=== PATIENT | female | born 1990 | race Caucasian/White ===

== ENCOUNTER 2019-02-01 17:37 | Emergency (ER) | payer OTHER ==
[2019-02-01 17:46] VITALS: TEMP 98.3
[2019-02-01 18:37] LABS: Basophils % (A) 0 %; Eosinophils # (A) 0.1 k/uL (0-0.7); Eosinophils % (A) 1 %; HGB 14.9 gm/dL (11.4-16.0); Lymphocytes # (A) 2.6 k/uL (1.0-4.8); Lymphocytes % (A) 29 %; MCH 31.1 pg (25.0-35.0); MCV 91.6 fL (80.0-100.0); Mean Platelet Volume 7.3; Monocytes # (A) 0.4 k/uL (0-1.0); Monocytes % (A) 4 %; Neutrophils # (A) 5.8 k/uL (1.3-7.7); Neutrophils % (A) 64 %; Platelet Count 255 k/uL (150-450); RDW 12.6 % (11.5-15.5); WBC 9.1 k/uL (3.8-10.6)
[2019-02-01 18:38] VITALS: RESP 16
[2019-02-01 18:44] LABS: ALT 24 U/L (4-34); AST 21 U/L (14-36); African American GFR (CKD) >90 (>60 ml/min/1.73 sqM); Albumin 4.6 g/dL (3.5-5.0); Alkaline Phosphatase 64 U/L (38-126); Anion Gap 10 mmol/L; Blood Urea Nitrogen 13 mg/dL (7-17); Calcium 9.9 mg/dL (8.4-10.2); Carbon Dioxide 24 mmol/L (22-30); Chloride 107 mmol/L (98-107); Glucose 108 mg/dL (74-99); Non-African American GFR(CKD) >90 (>60 ml/min/1.73 sqM); Potassium 4.2 mmol/L (3.5-5.1); Sodium 141 mmol/L (137-145); Total Bilirubin 0.6 mg/dL (0.2-1.3); Total Protein 7.1 g/dL (6.3-8.2)
[2019-02-01 19:00] LABS: HCG,Quantitative Serum 8624.3 mIU/mL
--- NOTE | 2019-02-01 20:06 | US ---
EXAMINATION TYPE: Transabdominal DATE OF EXAM: 02/01/2019 7:52 PM COMPARISON: NONE CLINICAL HISTORY: pain, vaginal bleeding. EXAM PERFORMED: Transabdominal (TA) EXAM MEASUREMENTS: GESTATIONAL AGE / DATING Physician Established: Not yet established Dates by LMP: 12/12/2018 (7 weeks/2 days) EDC: 09/18/2019 Dates by First Scan: No previous this is first scan Dates by Current Scan for: Unable to date by today's study MATERNAL ANATOMY Uterus: 9.1 x 5.5 x 6.3cm Right Ovary: 2.6 x 1.8 x 1.9 cm Left Ovary: 2.5 x 1.8 x 2.3 cm Post CDS / Adnexa: wnl Presence of free fluid: none GESTATION / SURVEY MSD: 0.9 cm measures out of range, too small to date Date of LMP: 12/12/2018 Beta HcG (if available): 8624 Tiny sac in uterus could represent early IUP too early to date. Recommend serial beta HcG. Does not c orrelate with patient's LMP. IMPRESSION: Tiny intrauterine gestational sac. Follow-up exam recommended in 14 days to confirm a living fetus. N o adnexal mass.
[2019-02-01 20:22] LABS: Appearance,Urine Clear (Clear); Bacteria,Urine Rare /hpf; Bilirubin,Urine Negative (Negative); Blood,Urine Large (Negative); Color,Urine Yellow; Glucose,Urine (UA) Negative (Negative); Ketones,Urine Negative (Negative); Leukocyte Esterase,Urine Small (Negative); Mucus,Urine Rare /hpf; Nitrite,Urine Negative (Negative); Protein,Urine Trace (Negative); RBC,Urine 128 /hpf (0-5); Squamous Epithelial Cell,Urine 4 /hpf (0-4); Urobilinogen,Urine <2.0 mg/dL (<2.0); WBC,Urine 10 /hpf (0-5)
--- NOTE | 2019-02-01 21:07 | ED ---
Female Urogenital HPI - General Chief complaint: Vaginal Bleeding Stated complaint: 8wks preg, bleeding Time Seen by Provider: 02/01/19 17:45 Source: patient Mode of arrival: ambulatory Limitations: no limitations - History of Present Illness Initial comments: The patient is a 28-year-old female with no past medical history who presents to the emergency room with reported vaginal bleeding. The patient is and currently approximately 8 weeks . She states that her last menstrual cycle was December 12. She took a home test which was positive. Has yet to establish care for this . States she recently moved to the area . On January 30 she began having mild vaginal bleeding. States that it is not enough to saturate a pad. She only sees it when she wipes. He is bright red in color. Admits to associated vaginal cramping. Denies any abdominal trauma. No vaginal discharge. Denies dysuria, hematuria of difficulty voiding. Denies diarrhea, constipation, melanotic stools or hematochezia. Denies syncope or pre syncope. No fevers or chills. Denies any nausea or vomiting. There are no other alleviating, precipitating or modifying factors - Related Data Allergies Allergy/AdvReac Type Severity Reaction Status Date / Time No Known Allergies Allergy Verified 02/01/19 17:42 Review of Systems ROS Statement: Those systems with pertinent positive or pertinent negative responses have been documented in the HPI. ROS Other: All systems not noted in ROS Statement are negative. Past Medical History Additional Past Medical History / Comment(s): bulging disc History of Any Multi-Drug Resistant Organisms: None Reported Past Surgical History: Appendectomy, Tonsillectomy Past Psychological History: No Psychological Hx Reported Smoking Status: Never smoker Past Alcohol Use History: None Reported Past Drug Use History: None Reported General Exam Limitations: no limitations General appearance: alert, in no apparent distress Head exam: Present: atraumatic, normocephalic, normal inspection Eye exam: Present: normal appearance, PERRL, EOMI. Absent: scleral icterus, conjunctival injection, periorbital swelling ENT exam: Present: normal exam, mucous membranes moist Neck exam: Present: normal inspection. Absent: tenderness, meningismus, lymphadenopathy Respiratory exam: Present: normal lung sounds bilaterally. Absent: respiratory distress, wheezes, rales, rhonchi, stridor Cardiovascular Exam: Present: regular rate, normal rhythm, normal heart sounds. Absent: systolic murmur, diastolic murmur, rubs, gallop, clicks GI/Abdominal exam: Present: soft, normal bowel sounds. Absent: distended, tenderness, guarding, rebound, rigid Speculum exam: Absent: vaginal discharge Extremities exam: Present: normal inspection, full ROM, normal capillary refill. Absent: tenderness, pedal edema, joint swelling, calf tenderness Back exam: Present: normal inspection Neurological exam: Present: alert, oriented X3, CN II-XII intact Psychiatric exam: Present: normal affect, normal mood Skin exam: Present: warm, dry, intact, normal color. Absent: rash Course Vital Signs 02/01/19 02/01/19 02/01/19 17:43 18:33 21:27 Temperature 98.3 F Pulse Rate 81 70 Respiratory 18 16 16 Rate Blood Pressure 153/84 128/90 O2 Sat by Pulse 99 99 Oximetry Medical Decision Making - Medical Decision Making Upon arrival the patient was placed into room 28. A thorough history and physical exam was performed. Lab studies were conducted. CBC is unremarkable. CMP shows a glucose 108. Urinalysis shows large blood, small leukocyte esterase, 128 red blood cells, 10 red blood cells, rare bacteria. Ultrasound is demonstrating tiny intrauterine gestational sac. I did perform a pelvic exam on the patient which demonstrates a small amount of red vaginal bleeding. Cervix is closed without lesions. I did repeat the patient's blood pressure and is normal at this time. I discussed diagnosis, differential and treatment options. I did inform the patient that she needs repeat beta Quant done in 48 hours as well as repeat ultrasound. I did write the patient prescription for repeat lab draw. The patient will need a repeat ultrasound in 1-2 weeks. She is to call to make an appointment with a local OB. Return to the emergency room for any new or worsening symptoms. Patient was in agreement with the treatment plan and discharged home in stable condition - Lab Data Result diagrams: 02/01/19 18:20 02/01/19 18:20 Lab Results 02/01/19 02/01/19 02/01/19 Range/Units 18:20 18:20 18:20 WBC 9.1 (3.8-10.6) k/uL RBC 4.80 (3.80-5.40) m/uL Hgb 14.9 (11.4-16.0) gm/dL Hct 44.0 (34.0-46.0) % MCV 91.6 (80.0-100.0) fL MCH 31.1 (25.0-35.0) pg MCHC 34.0 (31.0-37.0) g/dL RDW 12.6 (11.5-15.5) % Plt Count 255 (150-450) k/uL Neutrophils % 64 % Lymphocytes % 29 % Monocytes % 4 % Eosinophils % 1 % Basophils % 0 % Neutrophils # 5.8 (1.3-7.7) k/uL Lymphocytes # 2.6 (1.0-4.8) k/uL Monocytes # 0.4 (0-1.0) k/uL Eosinophils # 0.1 (0-0.7) k/uL Basophils # 0.0 (0-0.2) k/uL Sodium 141 (137-145) mmol/L Potassium 4.2 (3.5-5.1) mmol/L Chloride 107 (98-107) mmol/L Carbon Dioxide 24 (22-30) mmol/L Anion Gap 10 mmol/L BUN 13 (7-17) mg/dL Creatinine 0.80 (0.52-1.04) mg/dL Est GFR (CKD-EPI)AfAm >90 (>60 ml/min/1.73 sqM) Est GFR (CKD-EPI)NonAf >90 (>60 ml/min/1.73 sqM) Glucose 108 H (74-99) mg/dL Calcium 9.9 (8.4-10.2) mg/dL Total Bilirubin 0.6 (0.2-1.3) mg/dL AST 21 (14-36) U/L ALT 24 (4-34) U/L Alkaline Phosphatase 64 (38-126) U/L Total Protein 7.1 (6.3-8.2) g/dL Albumin 4.6 (3.5-5.0) g/dL HCG, Quant 8624.3 mIU/mL Urine Color Urine Appearance (Clear) Urine pH (5.0-8.0) Ur Specific [place] (1.001-1.035) Urine Protein (Negative) Urine Glucose (UA) (Negative) Urine Ketones (Negative) Urine Blood (Negative) Urine Nitrite (Negative) Urine Bilirubin (Negative) Urine Urobilinogen (<2.0) mg/dL Ur Leukocyte Esterase (Negative) Urine RBC (0-5) /hpf Urine WBC (0-5) /hpf Ur Squamous Epith Cells (0-4) /hpf Urine Bacteria (None) /hpf Urine Mucus (None) /hpf Blood Type O Positive Blood Type Recheck No Previous Record Bld Type Recheck Status [facility] ONLY 02/01/19 Range/Units 20:08 WBC (3.8-10.6) k/uL RBC (3.80-5.40) m/uL Hgb (11.4-16.0) gm/dL Hct (34.0-46.0) % MCV (80.0-100.0) fL MCH (25.0-35.0) pg MCHC (31.0-37.0) g/dL RDW (11.5-15.5) % Plt Count (150-450) k/uL Neutrophils % % Lymphocytes % % Monocytes % % Eosinophils % % Basophils % % Neutrophils # (1.3-7.7) k/uL Lymphocytes # (1.0-4.8) k/uL Monocytes # (0-1.0) k/uL Eosinophils # (0-0.7) k/uL Basophils # (0-0.2) k/uL Sodium (137-145) mmol/L Potassium (3.5-5.1) mmol/L Chloride (98-107) mmol/L Carbon Dioxide (22-30) mmol/L Anion Gap mmol/L BUN (7-17) mg/dL Creatinine (0.52-1.04) mg/dL Est GFR (CKD-EPI)AfAm (>60 ml/min/1.73 sqM) Est GFR (CKD-EPI)NonAf (>60 ml/min/1.73 sqM) Glucose (74-99) mg/dL Calcium (8.4-10.2) mg/dL Total Bilirubin (0.2-1.3) mg/dL AST (14-36) U/L ALT (4-34) U/L Alkaline Phosphatase (38-126) U/L Total Protein (6.3-8.2) g/dL Albumin (3.5-5.0) g/dL HCG, Quant mIU/mL Urine Color Yellow Urine Appearance Clear (Clear) Urine pH 6.0 (5.0-8.0) Ur Specific [place] 1.020 (1.001-1.035) Urine Protein Trace H (Negative) Urine Glucose (UA) Negative (Negative) Urine Ketones Negative (Negative) Urine Blood Large H (Negative) Urine Nitrite Negative (Negative) Urine Bilirubin Negative (Negative) Urine Urobilinogen <2.0 (<2.0) mg/dL Ur Leukocyte Esterase Small H (Negative) Urine RBC 128 H (0-5) /hpf Urine WBC 10 H (0-5) /hpf Ur Squamous Epith Cells 4 (0-4) /hpf Urine Bacteria Rare H (None) /hpf Urine Mucus Rare H (None) /hpf Blood Type Blood Type Recheck Bld Type Recheck Status Disposition Clinical Impression: Vaginal bleeding, Disposition: HOME SELF-CARE Condition: Stable Instructions (If sedation given, give patient instructions): Threatened Miscarriage (ED) Additional Instructions: Please have your beta Quant drawn in 48 hours. You need a repeat ultrasound in 1-2 weeks. Return to the emergency room for any new worsening symptoms Is patient prescribed a controlled substance at d/c from ED?: No Referrals: None,Stated [Primary Care Provider] - 1-2 days Time of Disposition: 21:05
[2019-02-01 21:28] VITALS: BP 128/90; PULSE 70
== END 2019-02-01 21:28 | disposition home or self-care (01) ==
LOC: EC 17:37
DX: O20.9 Hemorrhage in early pregnancy, unspecified (principal); O99.89 Other specified diseases and conditions complicating pregnancy, childbirth and the puerperium; R82.998 Other abnormal findings in urine; R10.2 Pelvic and perineal pain; Z90.49 Acquired absence of other specified parts of digestive tract; Z3A.08 8 weeks gestation of pregnancy
CPT/HCPCS: 36415; 76801; 80053; 81001; 84702; 85025; 86900; 86901; 99284

== ENCOUNTER → 2019-02-04 | Outpatient (CLI) | payer SELFPAY | END | disposition home or self-care (01) | LOC: LABWHC1 06:47 | PROVIDERS: ATTEND Emergency Medicine | DX: O46.90 Antepartum hemorrhage, unspecified, unspecified trimester (principal); Z3A.00 Weeks of gestation of pregnancy not specified | CPT/HCPCS: 36415; 84702 ==

== ENCOUNTER 2019-02-09 13:12 | Emergency (ER) | payer OTHER ==
[2019-02-09 14:05] VITALS: BP 105/67; PULSE 77; RESP 18; TEMP 97.9
[2019-02-09 14:57] LABS: Basophils % (A) 0 %; Eosinophils # (A) 0.1 k/uL (0-0.7); Eosinophils % (A) 1 %; HCT 36.8 % (34.0-46.0); HGB 12.7 gm/dL (11.4-16.0); Lymphocytes # (A) 1.8 k/uL (1.0-4.8); Lymphocytes % (A) 20 %; MCH 31.3 pg (25.0-35.0); MCHC 34.6 g/dL (31.0-37.0); MCV 90.5 fL (80.0-100.0); Mean Platelet Volume 7.8; Monocytes # (A) 0.4 k/uL (0-1.0); Monocytes % (A) 4 %; Neutrophils # (A) 6.5 k/uL (1.3-7.7); Neutrophils % (A) 73 %; Platelet Count 319 k/uL (150-450); RBC 4.06 m/uL (3.80-5.40); RDW 12.7 % (11.5-15.5); WBC 8.9 k/uL (3.8-10.6)
[2019-02-09 15:05] LABS: ALT 25 U/L (4-34); AST 22 U/L (14-36); African American GFR (CKD) >90 (>60 ml/min/1.73 sqM); Albumin 4.1 g/dL (3.5-5.0); Alkaline Phosphatase 60 U/L (38-126); Anion Gap 7 mmol/L; Blood Urea Nitrogen 11 mg/dL (7-17); Calcium 9.3 mg/dL (8.4-10.2); Carbon Dioxide 25 mmol/L (22-30); Chloride 106 mmol/L (98-107); Glucose 101 mg/dL (74-99); Non-African American GFR(CKD) >90 (>60 ml/min/1.73 sqM); Potassium 4.2 mmol/L (3.5-5.1); Sodium 138 mmol/L (137-145); Total Bilirubin 0.4 mg/dL (0.2-1.3); Total Protein 6.5 g/dL (6.3-8.2)
[2019-02-09 15:21] LABS: HCG,Quantitative Serum 4015.4 mIU/mL
--- NOTE | 2019-02-09 15:27 | ED ---
Female Urogenital HPI - General Source: patient Mode of arrival: ambulatory Limitations: no limitations <Cheyenne De - Last Filed: 02/09/19 23:10> <Kristen Chavez - Last Filed: 02/10/19 22:14> - General Chief complaint: Urogenital Stated complaint: 7 wks , bleeding Time Seen by Provider: 02/09/19 14:25 - History of Present Illness Initial comments: 29yo female presenting for cc of vaginal bleeding in . Ongoing for past week increasing. Now large clots. Concerned too heavy and presented to the emergency department. Patient denies any pelvic pain patient states she had a confirmed IUP. She states she noticed on the patient poorly that her hCG was downtrending. Patient denies any other complaints tries syncopal episodes dizziness lightheadedness palpitations fatigue. Remaining review of systems negative on arrival patient appears well no signs of acute distress. (Cheyenne De) - Related Data Allergies Allergy/AdvReac Type Severity Reaction Status Date / Time No Known Allergies Allergy Verified 02/09/19 14:05 Review of Systems ROS Other: All systems not noted in ROS Statement are negative. <Cheyenne De - Last Filed: 02/09/19 23:10> ROS Other: All systems not noted in ROS Statement are negative. <Kristen Chavez - Last Filed: 02/10/19 22:14> ROS Statement: Those systems with pertinent positive or pertinent negative responses have been documented in the HPI. Past Medical History Additional Past Medical History / Comment(s): bulging disc History of Any Multi-Drug Resistant Organisms: None Reported Past Surgical History: Appendectomy, Tonsillectomy Past Psychological History: No Psychological Hx Reported Smoking Status: Never smoker Past Alcohol Use History: None Reported Past Drug Use History: None Reported <Cheyenne De - Last Filed: 02/09/19 23:10> General Exam Limitations: no limitations <Cheyenne De - Last Filed: 02/09/19 23:10> - General Exam Comments Initial Comments: General: The patient is awake and alert, in no distress, and does not appear acutely ill. Eye: Pupils are equal, round and reactive to light, extra-ocular movements are intact. No nystagmus. There is normal conjunctiva bilaterally. No signs of icterus. Cardiovascular: There is a regular rate and rhythm. No murmur, rub or gallop is appreciated. Respiratory: Lungs are clear to auscultation, respirations are non-labored, breath sounds are equal. No wheezes, stridor, rales, or rhonchi. Gastrointestinal: Soft, non-distended, non-tender abdomen without masses or organomegaly noted. There is no rebound or guarding present. Mild to moderate blood in vault, dark red/small clots. os open. Musculoskeletal: Normal ROM, no tenderness. Strength 5/5. Sensation intact. Pulses equal bilaterally 2+. Neurological: A&O x 3. CN II-XII intact grossly, There are no obvious motor or sensory deficits. Coordination appears grossly intact. Speech is normal. Skin: Skin is warm and dry and no rashes or lesions are noted. Psychiatric: Cooperative, appropriate mood & affect, normal judgment. (Cheyenne De) Course Vital Signs 02/09/19 14:02 Temperature 97.9 F Pulse Rate 77 Respiratory 18 Rate Blood Pressure 105/67 O2 Sat by Pulse 100 Oximetry Medical Decision Making - Lab Data Result diagrams: 02/09/19 14:13 02/09/19 14:13 <Cheyenne De - Last Filed: 02/09/19 23:10> - Lab Data Result diagrams: 02/09/19 14:13 02/09/19 14:13 <Kristen Chavez - Last Filed: 02/10/19 22:14> - Medical Decision Making HCG taken today downtrending. pelvic moderate bleeding, no hemorrhage. Patient hemodynamically stable. Hemoglobin stable. She appears well at this time I feel patient is miscarrying and has scheduled appointment this week for follow- up with her [employer]. Patient evaluated by my attending provider who is group health care plan at discharge at this time. Patient agreeable to discharge with return parameters. (Cheyenne De) I was available for consultation in the emergency department. The history and physical exam were done by the midlevel provider. I was consulted for this patients care. I reviewed the case with the midlevel provider and based on their presentation of the patient, I agree with the assessment, medical decision making and plan of care as documented. I evaluated the patient myself. Chart was dictated using [employer] dictation software. Attempts were made to correct any dictation errors however some typographical errors may persist. (Kristen Chavez) - Lab Data Lab Results 02/09/19 02/09/19 Range/Units 14:13 14:13 WBC 8.9 (3.8-10.6) k/uL RBC 4.06 (3.80-5.40) m/uL Hgb 12.7 (11.4-16.0) gm/dL Hct 36.8 (34.0-46.0) % MCV 90.5 (80.0-100.0) fL MCH 31.3 (25.0-35.0) pg MCHC 34.6 (31.0-37.0) g/dL RDW 12.7 (11.5-15.5) % Plt Count 319 (150-450) k/uL Neutrophils % 73 % Lymphocytes % 20 % Monocytes % 4 % Eosinophils % 1 % Basophils % 0 % Neutrophils # 6.5 (1.3-7.7) k/uL Lymphocytes # 1.8 (1.0-4.8) k/uL Monocytes # 0.4 (0-1.0) k/uL Eosinophils # 0.1 (0-0.7) k/uL Basophils # 0.0 (0-0.2) k/uL Sodium 138 (137-145) mmol/L Potassium 4.2 (3.5-5.1) mmol/L Chloride 106 (98-107) mmol/L Carbon Dioxide 25 (22-30) mmol/L Anion Gap 7 mmol/L BUN 11 (7-17) mg/dL Creatinine 0.69 (0.52-1.04) mg/dL Est GFR (CKD-EPI)AfAm >90 (>60 ml/min/1.73 sqM) Est GFR (CKD-EPI)NonAf >90 (>60 ml/min/1.73 sqM) Glucose 101 H (74-99) mg/dL Calcium 9.3 (8.4-10.2) mg/dL Total Bilirubin 0.4 (0.2-1.3) mg/dL AST 22 (14-36) U/L ALT 25 (4-34) U/L Alkaline Phosphatase 60 (38-126) U/L Total Protein 6.5 (6.3-8.2) g/dL Albumin 4.1 (3.5-5.0) g/dL HCG, Quant 4015.4 mIU/mL Disposition Is patient prescribed a controlled substance at d/c from ED?: No Time of Disposition: 15:27 <Cheyenne De - Last Filed: 02/09/19 23:10> <Kristen Chavez - Last Filed: 02/10/19 22:14> Clinical Impression: Miscarriage, Vaginal bleeding during Disposition: HOME SELF-CARE Condition: Good Instructions (If sedation given, give patient instructions): Miscarriage (ED) Additional Instructions: Please use medication as discussed. Please follow-up with Dr. Calderon on Monday as discussed. Please return to emergency room if the symptoms increase or worsen or for any other concerns--worsened bleeding. Referrals: None,Stated [Primary Care Provider] - 1-2 days Reese Inman MD [STAFF PHYSICIAN] - 1-2 days
== END 2019-02-09 16:04 | disposition home or self-care (01) ==
LOC: EC 13:12
DX: O03.9 Complete or unspecified spontaneous abortion without complication (principal)
CPT/HCPCS: 36415; 80053; 84702; 85025; 99284

== ENCOUNTER → 2019-02-09 | Outpatient (CLI) | payer SELFPAY | END | disposition home or self-care (01) | LOC: LABWHC1 08:32 | PROVIDERS: ATTEND Obstetrics & Gynecology | DX: O20.0 Threatened abortion (principal) | CPT/HCPCS: 36415; 84702 ==

== ENCOUNTER → 2019-10-24 | Outpatient (CLI) | payer SELFPAY | END | disposition home or self-care (01) | LOC: LABWHC1 13:17 | PROVIDERS: ATTEND Obstetrics & Gynecology | DX: O20.0 Threatened abortion (principal) | CPT/HCPCS: 36415; 84702 ==

== ENCOUNTER → 2019-10-27 | Outpatient (CLI) | payer SELFPAY | END | disposition home or self-care (01) | LOC: EC 08:21 | PROVIDERS: ATTEND Obstetrics & Gynecology | DX: O20.0 Threatened abortion (principal) | CPT/HCPCS: 36415; 84702 ==

== ENCOUNTER → 2020-07-25 | Outpatient (CLI) | payer BC ==
--- NOTE | 2020-07-25 08:44 | MR ---
EXAMINATION TYPE: MR lumbar spine wo con DATE OF EXAM: 07/25/2020 COMPARISON: Outside MRI lumbar spine April 12, 2017 images, report not available. HISTORY: Low back pain. Pain for years into bilateral thighs and buttocks per patient. TECHNIQUE: Multiplanar, multisequence imaging of the lumbar spine is performed without IV contrast. FINDINGS: Sagittal images of the lumbar spine show vertebral body heights to remain satisfactory. Sub tle grade 1 retrolisthesis L4 on L5 and L5 on S1 is stable. Disc desiccation at L3-L4 through the L5- S1 levels redemonstrated. Stable mild disc space narrowing L3-L4 level. Stable mild to moderate disc space narrowing with heterogeneous Modic type II endplate changes L5-S1 level and mild anterior spurr ing redemonstrated. The conus medullaris remains normal in position and signal ending inferior T12 l evel. Axial images show T12-L1, L1-L2, and L2-L3 levels all to remain within normal limits. Axial images at the L3-L4 level show mild facet arthropathy. There is mild broad disc bulge minimally effacing the anterior thecal sac, patent bilateral neural foramina. No significant change from prior . Axial images at the L4-L5 level show mild facet arthropathy bilaterally. There is mild broad disc bul ge with posterior annular tear. There is mild effacement of the anterior thecal sac. Patent bilateral neural foramina. No significant change from prior. Axial images at the L5-S1 level show mild facet arthropathy bilaterally. There is right paracentral b road-based disc protrusion on axial image 3 and sagittal image 10 which is more prominent from prior measuring approximately 6 mm AP diameter by 20 mm transversely. Spinal canal is preserved due to incr eased epidural fat at this level. This is encroaching towards the central right S1 nerve axial image 2 and sagittal image 10. Left-sided neural foramen is patent. There is partial visualization of enlarged uterus with intrauterine gestation. Partial visualiz ation of cephalad directed fetus and posterior placenta noted. IMPRESSION: Multilevel degenerative changes mid to lower lumbar spine as detailed above. More promine nt disc herniation L5-S1 level noted, correlate for right S1 radiculopathy symptoms.
== END | disposition home or self-care (01) ==
LOC: RADMRIMAIN 07:37
PROVIDERS: ATTEND Orthopaedic Surgery
DX: M51.27 Other intervertebral disc displacement, lumbosacral region (principal); M47.816 Spondylosis without myelopathy or radiculopathy, lumbar region
CPT/HCPCS: 72148

== ENCOUNTER → 2020-08-18 | Outpatient (CLI) | payer BC ==
--- NOTE | 2020-08-18 14:32 | XR ---
EXAMINATION TYPE: XR foot complete LT DATE OF EXAM: 08/18/2020 CLINICAL HISTORY: Left foot pain TECHNIQUE: Frontal, lateral, and oblique images of the left foot are obtained. COMPARISON: None FINDINGS: There is no acute fracture/dislocation evident in the left foot. The joint spaces in the left foot appear within normal limits. The overlying soft tissue appears unremarkable. IMPRESSION: There is no acute fracture or dislocation in the left foot. If there is clinical concern for soft tissue neoplasm, MRI with and without contrast could be obtained.
== END | disposition home or self-care (01) ==
LOC: RADXRMAIN 12:35
PROVIDERS: ATTEND Physician Assistant
DX: M79.672 Pain in left foot (principal)

== ENCOUNTER 2020-09-22 06:15 | Inpatient (IN) | payer BC ==
[2020-09-22] MEDS ORDERED: METHYLERGONOVINE 0.2 MG/ML 1 ML AMP IM PRN (06:45)
[2020-09-22] MEDS ORDERED: TERBUTALINE 1 MG/ML VIAL SQ PRN (06:45)
[2020-09-22] MEDS ORDERED: OXYTOCIN 10 UNIT/ML 1 ML VIAL IM PRN (06:45)
[2020-09-22] MEDS ORDERED: CARBOPROST TROMETHAMINE 250 MCG/ML 1 ML AMP IM PRN (06:45)
[2020-09-22] MEDS ORDERED: LIDOCAINE 0.5% (PF) 5 MG/ML (50 ML SDV) SQ PRN (06:45)
[2020-09-22] MEDS ORDERED: OXYTOCIN 30 UNITS/500 ML NS 30 UNIT in SALINE 1 500ML.BAG IV SCH ×2 (06:45→17:15)
[2020-09-22] MEDS ORDERED: LACTATED RINGERS 1,000 ML IV SCH (06:45)
[2020-09-22] MEDS: LACTATED RINGERS 1,000 ML IV SCH ×2 (06:55→15:49)
[2020-09-22 06:56] LABS: Basophils % (A) 0 %; Eosinophils # (A) 0.1 k/uL (0-0.7); Eosinophils % (A) 1 %; HCT 40.3 % (34.0-46.0); HGB 13.9 gm/dL (11.4-16.0); Lymphocytes # (A) 1.7 k/uL (1.0-4.8); Lymphocytes % (A) 20 %; MCH 32.3 pg (25.0-35.0); MCHC 34.6 g/dL (31.0-37.0); MCV 93.5 fL (80.0-100.0); Mean Platelet Volume 7.9; Monocytes # (A) 0.4 k/uL (0-1.0); Monocytes % (A) 4 %; Neutrophils # (A) 6.5 k/uL (1.3-7.7); Neutrophils % (A) 73 %; Platelet Count 262 k/uL (150-450); Poikilocytosis Slight; RBC 4.31 m/uL (3.80-5.40); RDW 14.6 % (11.5-15.5); WBC 8.9 k/uL (3.8-10.6)
--- NOTE | 2020-09-22 08:29 | P.HPOB ---
History of Present Illness H&P Date: 09/22/20 Chief Complaint: Metromenorrhagia, undesired fertility The patient is a 30-year-old 2 para 200-2 presents with about 8 months history of irregular and very heavy bleeding which has happened historically as well with some respites between. She is currently using condoms for contraception and is interested in permanent sterilization with tubal ligation. Given her issues with the ongoing heavy and irregular bleeding, she has requested both laparoscopic bilateral tubal occlusion with Filshie clips as well as NovaSure endometrial ablation. We will additionally performed D&C prior to the ablation in order to at have a biopsy on file. Obstetrical history: 2 para 2001 with 1 term vaginal delivery followed by a term section. Method of contraception is condoms as noted above. Gynecologic history: Unremarkable with no history of any infections to include STDs. Review of Systems Review of systems is confined to history of present illness. Past Medical History Past Medical History: No Reported History Additional Past Medical History / Comment(s): bulging disc History of Any Multi-Drug Resistant Organisms: None Reported Past Surgical History: Appendectomy, Tonsillectomy Past Anesthesia/Blood Transfusion Reactions: No Reported Reaction Past Psychological History: No Psychological Hx Reported Smoking Status: Never smoker Past Alcohol Use History: None Reported Past Drug Use History: None Reported - Past Family History Mother Family Medical History: No Reported History Medications and Allergies Home Medications Medication Instructions Recorded Confirmed Type Pnv No.95/Ferrous Fum/Folic AC 1 tab PO ONCE 09/22/20 09/22/20 History [ Multivitamin Tablet] Allergies Allergy/AdvReac Type Severity Reaction Status Date / Time No Known Allergies Allergy Verified 02/09/19 14:05 Exam Vital Signs Temp Pulse Resp BP Pulse Ox 09/22/20 06:47 96.7 F L 100 16 128/84 97 Intake and Output 09/21/20 09/22/20 09/22/20 22:59 06:59 14:59 Other: Weight 121.109 kg In general, this is a well-developed, well-nourished white female in no acute distress. Her heart has a regular rhythm and rate without murmur. Her lungs are clear to auscultation bilaterally in all deal. Her abdomen is nondistended, has normal active bowel sounds, is soft, nontender, and without any palpable masses, para thoroughly, or hernias. Her extremities are without any cyanosis, clubbing, or edema and are nontender to palpation bilaterally. Pelvic examination is deferred to the operating room. Results Result Diagrams: 09/22/20 06:45 Assessment and Plan (1) Menometrorrhagia Current Visit: Yes Status: Acute Code(s): N92.1 - EXCESSIVE AND FREQUENT MENSTRUATION WITH IRREGULAR CYCLE SNOMED Code(s): 392756097 (2) Family planning Current Visit: Yes Status: Acute Code(s): Z30.09 - ENCOUNTER FOR [facility] AND ADVICE ON CONTRACEPTION SNOMED Code(s): 237851641 Plan: Options for treatment were thoroughly discussed. The patient has requested laparoscopic bilateral tubal occlusion with Filshie clips, diagnostic hysteroscopy with D&C to be followed by NovaSure endometrial ablation. Blessing complications of the procedure been thoroughly discussed including the risk for bleeding, bleeding requiring transfusion, infection, injury to local structures to include the bowel, bladder, and ureters for the laparoscopic portion and to include uterine perforation, Asherman syndrome, and subsequent hematometra for the ablation portion. She is understood all of this and agreed to proceed.
[2020-09-22] MEDS ORDERED: METOCLOPRAMIDE 5 MG/ML 2 ML VIAL IVP PRN (09:25)
[2020-09-22] MEDS ORDERED: ONDANSETRON 4 MG/2 ML VIAL IVP PRN (09:25)
[2020-09-22] MEDS ORDERED: Acetaminophen-Codeine 300-30mg TAB PO PRN ×2 (09:25)
[2020-09-22] MEDS ORDERED: SIMETHICONE 80 MG CHEWABLE PO PRN ×2 (09:25→17:07)
[2020-09-22] MEDS ORDERED: KETOROLAC 15 MG/ML 1 ML VIAL IVP PRN (09:25)
[2020-09-22] MEDS ORDERED: diphenhydrAMINE 50 MG/ML 1 ML VIAL IVP PRN ×3 (09:25→17:07)
[2020-09-22] MEDS ORDERED: IBUPROFEN 600 MG TAB PO PRN (09:25)
--- NOTE | 2020-09-22 09:37 | P.OP ---
Date of Procedure: 09/22/20 Preoperative Diagnosis: #1. Undesired fertility #2. Menometrorrhagia Postoperative Diagnosis: Same Procedure(s) Performed: #1. Laparoscopic bilateral tubal occlusion with Filshie clips #2. Diagnostic hysteroscopy #3. Dilation and curettage #4. NovaSure endometrial ablation Anesthesia: ESTHER Surgeon: Reese Inman Estimated Blood Loss (ml): 5 IV fluids (ml): 600 Urine output (ml): 100 Pathology: other (Endometrial curettings) Condition: stable Disposition: PACU Operative Findings: Preoperative pelvic examination demonstrated a roughly 5 week acutely retroverted mobile normal shaped uterus with normal adnexa bilaterally. Intraoperatively this was confirmed though the uterus was somewhat soft and floppy consistent with the possibility of adenomyosis. A Filshie clip was placed firmly across each tube in the isthmic portion. The small and large bowel as well as the liver, gallbladder and diaphragm were entirely normal to inspection. The appendix was also normal to inspection. There was an omental adhesion just lateral to the umbilicus and slightly inferior to it consistent with the possibility of a ventral wall hernia as the patient has had no previous abdominal surgery aside from a section. The adhesion was left in place. There was no evidence of endometriosis or other pathology in the pelvis. The uterus sounded to 9 cm with a cervical length of approximately 3.5 cm. The hysteroscope demonstrated some shaggy tissue throughout the entire endometrial cavity and the bilateral tubal ostia were seen. The settings for the NovaSure tool where a length of 5.5 cm, a width of 3.6 cm for a total power of 109 W. The total run time was 56 seconds after which time the base unit read "procedure complete." The postprocedural hysteroscopic result appeared to be excellent. The patient is a potential candidate for vaginal hysterectomy should it become necessary in the future. Description of Procedure: The patient was prepped and draped in usual fashion after general endotracheal anesthesia was administered by the anesthesiologist. A weighted speculum was placed and the bladder was drained of approximately 100 mL of clear rosario urine. The anterior lip of the cervix was grasped with a single-tooth tenaculum allowing insertion of an acorn cannula for manipulation. Attention was then turned to the abdomen where a roughly 5 mm incision was made in the vertical fold of the umbilicus allowing insertion of a 5 mm optical trocar under direct visualization without difficulty. A pneumoperitoneum was then infused. The omental adhesion was noted in the midline. A site was selected through the previous section scar in the transverse plane where an 8 mm incision was made in the midline allowing insertion of an 8 mm optical trocar under direct visualization without difficulty. The blunt probe was utilized to sweep the bowel from the pelvis and the findings are as noted above. There was some difficulty in seeing the entire pelvis at the same time secondary to the omental adhesion. After seeing no pathology in the pelvis, the probe was replaced with a Filshie clip applicator which was utilized to place a Filshie clip across the isthmic portion of the right fallopian tube approximately 2-3 cm from the cornu where was firmly affixed. A similar operation was carried out on the left without difficulty. The remainder of the abdomen was then examined. There was no evidence of endometriosis or other pathology in the pelvis. The appendix was entirely normal to inspection as was a small and large bowel. The liver and gallbladder and diaphragm appeared normal as well. All instrumentation was then removed from the abdomen after evacuating the pneumoperitoneum through the 2 ports. The incisions were closed with interrupted subcuticular stitches of 4-0 Vicryl. I returned to the vaginal portion of the procedure and replaced the weighted speculum and remove the acorn cannula. The uterus was sounded to 9 cm as noted above with a cervical length of 3.5 cm. Serial dilation was carried out to admit the diagnostic hysteroscope which was placed into the cavity and it distended with normal saline. The findings are as noted above with no evidence of any pathology though there was a moderate amount of shaggy endometrium present. The bilateral tubal ostia were seen. The scope was then set aside and a Telfa placed in the vagina allowing thorough and circumferential endometrial curettage with a medium sharp curette. A moderate amount of tissue was removed onto the Telfa and sent to pathology for diagnoses. The NovaSure tool was then placed into the uterus, opened, and seated well. The settings were as noted above with a length of 5.5 cm, a width of 3.6 cm for a total power of 109 W. The cavity check was attempted and passed without difficulty and the tool was enabled. The run was started and, after a total run time of 56 seconds, the base unit read "procedure complete." The 2 was closed, removed, and discarded. The diagnostic scope was replaced and the resulting findings were excellent. All instrumentation was then removed and one point of bleeding from one of the tenaculum sites was made hemostatic with pressure. Estimated blood loss for the entire case was 5 mL or less. There were no complications. All sponge, instrument, and needle counts were correct. The patient is a potential candidate for vaginal hysterectomy should it become necessary in the future given the degree of descensus. There did not appear to be any significant scarring at the level of the bladder. The patient tolerated the procedure well and proceeded to the recovery room in stable condition.
--- NOTE | 2020-09-22 10:05 | P.HPOB ---
History of Present Illness H&P Date: 09/22/20 Chief Complaint: 39-2/7 weeks, elective induction Patient is a 30-year-old 6 para 3023 who is admitted to labor and delivery for elective induction at 39-2/7 weeks as established by last menstrual period and confirmed by 8 week ultrasound. She carries a history of gestational hypertension but has had no problems during this . She additionally was found in the third trimester to have the fetus growing at approximately the 98th percentile at 34 weeks. As a result, she has requested induction of labor. Group B strep status is negative. On labor and delivery, all signs are reassuring with a category 1 heart rate tracing. Obstetrical history: 6 para 3023 with 3 term vaginal deliveries without complications. She did have 2 early miscarriages not requiring D&C. EDC of 09/27/2020 was established by last menstrual period and confirmed by 8 week ultrasound. Laboratory workup demonstrates a blood type of O+ with a negative antibody screen. Rubella status is immune. Remainder of the laboratory workup was within normal limits. Early Glucola was normal as was second trimester Glucola. Group B strep status is negative. Gynecologic history: Unremarkable with no history of any infections to include STDs. Review of Systems Review of systems is confined to history of present illness. Past Medical History Past Medical History: No Reported History Additional Past Medical History / Comment(s): bulging disc History of Any Multi-Drug Resistant Organisms: None Reported Past Surgical History: Appendectomy, Tonsillectomy Past Anesthesia/Blood Transfusion Reactions: No Reported Reaction Past Psychological History: No Psychological Hx Reported Smoking Status: Never smoker Past Alcohol Use History: None Reported Past Drug Use History: None Reported - Past Family History Mother Family Medical History: No Reported History Medications and Allergies Home Medications Medication Instructions Recorded Confirmed Type Pnv No.95/Ferrous Fum/Folic AC 1 tab PO ONCE 09/22/20 09/22/20 History [ Multivitamin Tablet] Allergies Allergy/AdvReac Type Severity Reaction Status Date / Time No Known Allergies Allergy Verified 02/09/19 14:05 Exam Vital Signs Temp Pulse Resp BP Pulse Ox 09/22/20 06:47 96.7 F L 100 16 128/84 97 Intake and Output 09/21/20 09/22/20 09/22/20 22:59 06:59 14:59 Other: Weight 121.109 kg In general, this is a well-developed, well-nourished white female in no acute distress. Her heart has a regular rhythm and rate without murmur. Her lungs are clear to auscultation bilaterally in all deal. Her abdomen is gravid, nondistended, has normal active bowel sounds, is soft, nontender, and without any palpable masses aside from uterine fundus. Her extremities are without any cyanosis, clubbing, or significant edema and are nontender to palpation bilaterally. Digital cervical examination demonstrates her cervix to be proximally 2 cm dilated, 50-60% effaced, the vertex in presentation at -2 station. Artificial rupture of membranes is carried out demonstrating clear fluid. Results Result Diagrams: 09/22/20 06:45 Assessment and Plan (1) Menometrorrhagia Current Visit: Yes Status: Acute Code(s): N92.1 - EXCESSIVE AND FREQUENT MEN STRUATION WITH IRREGULAR CYCLE SNOMED Code(s): 033407890 (2) Family planning Current Visit: Yes Status: Acute Code(s): Z30.09 - ENCOUNTER FOR OT GENERAL CNSL AND ADVICE ON CONTRACEPTION SNOMED Code(s): 322050015 Plan: The patient is admitted for elective induction of labor. Pitocin augmentation has been started and she has undergone artificial rupture of membranes per she will have close maternal and surveillance and expectant management will be practiced. She is a good candidate for either IV or epidural analgesia, whichever she may choose.
[2020-09-22] MEDS ORDERED: BUTORPHANOL 1 MG/ML 1 ML VIAL IV PRN (10:06)
[2020-09-22] MEDS ORDERED: ROPIVACAINE 100 MG, fentaNYL (PF). 200 MCG in SODIUM CHLORIDE 0.9% 76 ML EPIDURAL ONE (10:47)
[2020-09-22] MEDS ORDERED: HYDROcodone/APAP 7.5-325MG 1 EACH TAB PO PRN (17:07)
[2020-09-22] MEDS ORDERED: diphenhydrAMINE 25 MG CAP PO PRN (17:07)
[2020-09-22] MEDS ORDERED: LANOLIN CREAM 5 GM TUBE TOPICAL PRN (17:07)
[2020-09-22] MEDS ORDERED: BENZOCAINE/MENTHOL SPRAY 1 GM/SPRAY AEROSOL TOPICAL PRN (17:07)
[2020-09-22] MEDS ORDERED: HYDROCORTISONE 2.5% RECTAL CREAM 30 GM TUBE RECTAL PRN (17:07)
[2020-09-22] MEDS ORDERED: ZOLPIDEM 5 MG TAB PO PRN (17:07)
[2020-09-22] MEDS ORDERED: HYDROcodone/APAP 5-325MG 1 EACH TAB PO PRN (17:07)
[2020-09-22] MEDS ORDERED: diphenhydrAMINE 50 MG CAP PO PRN (17:07)
--- NOTE | 2020-09-22 17:12 | P.PROBDLV ---
Vaginal Delivery Note - . Vaginal Delivery Note: The patient is a 30-year-old 6 para 3023 admitted at 39-2/7 weeks by good dating parameters. She is admitted for elective induction of labor secondary to suspected macrosomia with a favorable cervix. Her has been uncomplicated and group B strep status is negative. On labor and delivery, she was admitted with all signs reassuring and category 1 heart rate tracing. She had Pitocin started and underwent artificial rupture membranes for clear fluid. She later had an epidural catheter placed for analgesia and then progressed through the active phase of labor consistently to complete. She pushed over the course of 1 contraction to a normal spontaneous vaginal delivery of a viable 8 lbs. 15 oz. baby boy with Apgars of 8 at 1 minute and 9 at 5 minutes delivered in the direct occiput anterior position. The placenta was delivered spontaneously, intact, and grossly normal with a grossly normal three-vessel cord noted to have a true knot in it as well as a fairly long cord. There was a small second-degree perineal laceration likely in the site of a previous laceration which was repaired in standard fashion using 3-0 chromic catgut without difficulty. Estimated blood loss for the entire case is approximately 100 mL. There were no complications. All sponge, instrument, and needle counts were correct. Both mother and are resting comfortably in recovery.
[2020-09-22] MEDS: IBUPROFEN 600 MG TAB PO PRN (18:06)
[2020-09-22] MEDS: SENNOSIDES-DOCUSATE SODIUM 1 EACH TAB PO SCH (19:41)
[2020-09-22] MEDS: ACETAMINOPHEN TAB 325 MG TAB PO PRN (21:06)
[2020-09-23] MEDS: IBUPROFEN 600 MG TAB PO PRN ×3 (00:46→15:00)
[2020-09-23] MEDS: ACETAMINOPHEN TAB 325 MG TAB PO PRN (04:44)
[2020-09-23 05:32] VITALS: RESP 16
[2020-09-23] MEDS: SENNOSIDES-DOCUSATE SODIUM 1 EACH TAB PO SCH (07:46)
--- NOTE | 2020-09-23 09:06 | P.DS ---
Providers Date of admission: 09/22/20 06:31 Expected date of discharge: 09/23/20 Attending physician: Reese Inman Primary care physician: Stated None - Discharge Diagnosis(es) (1) Normal spontaneous vaginal delivery Current Visit: Yes Status: Acute Hospital Course: The patient is a 30-year-old 6 para 30-3 who was admitted for elective induction at 39-2/7 weeks by good dating parameters. She had an uncomplicated though the baby was thought to be large for gestational age with growth at the 90th percentile at 34 weeks. Group B strep status is negative. On labor and delivery, all signs reassuring with a category 1 heart rate tracing. She had Pitocin started and underwent artificial rupture of membranes. She later had an epidural catheter placed for analgesia. She progressed steadily through the day to complete and then pushed quickly to a normal spontaneous vaginal delivery of a viable 8 lbs. 15 oz. baby boy with Apgars of 8 at 1 minute and 9 at 5 minutes. Her course was unremarkable vital signs being stable and her temperature was afebrile throughout. She was deemed stable for discharge on day #1 and was discharged home to follow-up in the office in 6 weeks' time routinely. Discharge instructions included calling for any significantly increased bleeding or foul-smelling lochia, significantly increased fever abdominal pain, perineal complaints, breast complaints, or anything also concerned her. She was additionally instructed to have nothing in the vagina for at least 6 weeks time to include intercourse. She understood her instructions and agrees to follow up as noted above. Discharge medications included only continued vitamins as she has opted to breast-feed as well as [id number] analgesic pain medications. Maternal blood type is O+ and rubella status is immune. Procedures: #1. Pitocin induction #2. Artificial rupture of membranes #3. Epidural analgesia #4. Normal spontaneous vaginal delivery #5. Repair of perineal laceration Patient Condition at Discharge: Stable Plan - Discharge Summary New Discharge Prescriptions: No Action Pnv No.95/Ferrous Fum/Folic AC [ Multivitamin Tablet] 1 tab PO ONCE Discharge Medication List Pnv No.95/Ferrous Fum/Folic AC [ Multivitamin Tablet] 1 tab PO ONCE 09/22/20 [History] Follow up Appointment(s)/Referral(s): Reese Inman MD [STAFF PHYSICIAN] - 6 Weeks Discharge Disposition: HOME SELF-CARE
[2020-09-23 15:11] VITALS: BP 120/81; PULSE 76; TEMP 97.8
== END 2020-09-23 18:00 | disposition home or self-care (01) | DRG 807 ==
LOC: 4FBP 06:31
PROVIDERS: ADMIT Obstetrics & Gynecology; ATTEND Obstetrics & Gynecology
PROC: 10E0XZZ Delivery of Products of Conception, External Approach (ICD-10-PCS; principal; 2020-09-22)
PROC: 0KQM0ZZ Repair Perineum Muscle, Open Approach (ICD-10-PCS; 2020-09-22)
DX: O69.2XX0 Labor and delivery complicated by other cord entanglement, with compression, not applicable or unspecified (principal); Z37.0 Single live birth; O70.1 Second degree perineal laceration during delivery; Z3A.39 39 weeks gestation of pregnancy
CPT/HCPCS: 85025; 86850; 86900; 86901

== ENCOUNTER → 2021-09-16 | Outpatient (CLI) | payer BC | END | disposition home or self-care (01) | LOC: LABWHC1 07:02 | PROVIDERS: ATTEND Obstetrics & Gynecology | DX: O99.210 Obesity complicating pregnancy, unspecified trimester (principal); Z3A.00 Weeks of gestation of pregnancy not specified | CPT/HCPCS: 36415; 82950 ==

== ENCOUNTER 2021-11-16 16:56 | Outpatient (CLI) | payer BC ==
[2021-11-16 17:41] VITALS: BP 141/78; PULSE 73; RESP 16; TEMP 97.2
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
== END 2021-11-16 17:36 | disposition home or self-care (01) ==
LOC: FBPOP 16:56
PROVIDERS: ATTEND Obstetrics & Gynecology
DX: O26.92 Pregnancy related conditions, unspecified, second trimester (principal); Z3A.20 20 weeks gestation of pregnancy
CPT/HCPCS: 99213

== ENCOUNTER → 2023-01-07 | Outpatient (CLI) | payer BC ==
[2023-01-07 09:27] LABS: Basophils % (A) 0 %; Eosinophils # (A) 0.2 k/uL (0-0.7); Eosinophils % (A) 4 %; HCT 43.4 % (34.0-46.0); HGB 14.8 gm/dL (11.4-16.0); Lymphocytes % (A) 37 %; MCH 30.7 pg (25.0-35.0); MCV 90.4 fL (80.0-100.0); Mean Platelet Volume 8.4; Monocytes # (A) 0.3 k/uL (0-1.0); Monocytes % (A) 6 %; Neutrophils # (A) 2.7 k/uL (1.3-7.7); Neutrophils % (A) 51 %; Platelet Count 225 k/uL (150-450); WBC 5.3 k/uL (3.8-10.6)
[2023-01-07 10:39] LABS: ALT 18 U/L (4-34); AST 19 U/L (14-36); African American GFR (CKD) >90 (>60 ml/min/1.73 sqM); Albumin 4.1 g/dL (3.5-5.0); Alkaline Phosphatase 52 U/L (38-126); Anion Gap 11 mmol/L; Blood Urea Nitrogen 9 mg/dL (7-17); Calcium 9.3 mg/dL (8.4-10.2); Carbon Dioxide 26 mmol/L (22-30); Chloride 104 mmol/L (98-107); Glucose 81 mg/dL (74-99); Non-African American GFR(CKD) >90 (>60 ml/min/1.73 sqM); Potassium 4.4 mmol/L (3.5-5.1); Sodium 141 mmol/L (137-145); Total Bilirubin 0.5 mg/dL (0.2-1.3); Total Protein 6.5 g/dL (6.3-8.2)
[2023-01-07 23:04] LABS: Chol/HDL Ratio 5.18 Ratio; LDL Cholesterol,Calculated 110.2 mg/dL (0.0-131.0)
== END ==
LOC: PAT 08:07
PROVIDERS: ATTEND Pediatrics
DX: Z00.01 Encounter for general adult medical examination with abnormal findings (principal); Z13.220 Encounter for screening for lipoid disorders; N92.0 Excessive and frequent menstruation with regular cycle; N81.11 Cystocele, midline; N94.10 Unspecified dyspareunia
CPT/HCPCS: 80053; 80061; 85025; 86850; 86900; 86901

== ENCOUNTER → 2023-01-07 | Outpatient (CLI) | payer BC ==
--- NOTE | 2023-01-07 09:23 | XR ---
EXAMINATION TYPE: XR hand complete LT DATE OF EXAM: 01/07/2023 COMPARISON: None HISTORY: Ganglion third digit TECHNIQUE: 3 view left hand FINDINGS: No acute fracture or dislocation is evident. Joint spaces are preserved. Soft tissues are n ormal. Follow up exams can be performed 7-10 days from acute trauma for continued pain. IMPRESSION: 1. No acute osseous abnormality left hand
== END | disposition home or self-care (01) ==
LOC: RADXRMAIN 08:45
PROVIDERS: ATTEND Physician Assistant
DX: M67.442 Ganglion, left hand (principal)

== ENCOUNTER 2023-01-10 08:11 | Observation (INO) | payer BC ==
[2023-01-06 10:21] VITALS: BMI 25.1
--- NOTE | 2023-01-09 12:59 | HP ---
HISTORY AND PHYSICAL DATE OF SCHEDULED SURGERY: 01/10/2023. HISTORY OF PRESENT ILLNESS: The patient is a 32-year-old 7, para 5-0-2-5 who has a relatively longstanding history of cystocele, which has caused her some discomfort and has increased since her last childbirth approximately 1-2 years ago. The symptoms have been increasing over the last several years and with each subsequent child. She is now finished with childbearing. She does report moderate dyspareunia and feels a bulge and pressure all the time. She has some difficulty emptying her bladder completely secondary to the bulge and this leads to urinary frequency. She also reports that her cycles have been occurring every 2 weeks despite use of an oral contraceptive pill. She has been unable to wear a tampon secondary to discomfort and also finds that she bleeds through the protection with fairly significant menorrhagia. As reported above, she has completed childbearing and is interested in definitive therapy and has requested surgical repair. PAST MEDICAL HISTORY: Significant for occasional anxiety and depression. PAST SURGICAL HISTORY: Significant for appendectomy in 2011 and a cholecystectomy in 2022. There were no anesthetic concerns. OBSTETRICAL HISTORY: 7, para 5-0-2-5 with 2 early miscarriages and 5 normal spontaneous vaginal deliveries. Her current method of contraception has been oral contraceptive pills. GYNECOLOGIC HISTORY: Unremarkable except as noted in history of present illness. There is no history of any infections to include STDs. FAMILY HISTORY: Noncontributory. SOCIAL HISTORY: The patient is and works in the [employer]. She is a nonsmoker and denies any significant alcohol or any other social concerns. CURRENT MEDICATIONS: Include Junel 1.5/30 daily and Zoloft 100 mg daily. ALLERGIES: No known drug allergies. REVIEW OF SYSTEMS: Confined to history of present illness. PHYSICAL EXAMINATION: VITAL SIGNS: Stable. The patient is afebrile. GENERAL: This is a well-developed, well-nourished white female, in no acute distress. HEART: Regular rhythm and rate without murmur. LUNGS: Clear to auscultation bilaterally in all deal. ABDOMEN: Nondistended, has normoactive bowel sounds, soft, nontender, and without any palpable masses, hepatosplenomegaly, or hernias. EXTREMITIES: Without any cyanosis, clubbing, or edema and are nontender to palpation bilaterally. PELVIS: Demonstrates normal external genitalia and BUS with normal vaginal mucosa and cervix. There is no cervical motion tenderness. Uterus is approximately 5 weeks in size, retroverted, mobile, nontender, normal in shape. There is grade 2+ uterine prolapse with grade 3+ cystocele present. The adnexa are normal and nontender without mass bilaterally. ASSESSMENT: 1. Symptomatic cystocele. 2. Dysfunctional uterine bleeding. 3. Uterine prolapse. 4. Menorrhagia. 5. Dyspareunia. PLAN: Given all of the above diagnoses, the patient has requested definitive therapy as she has finished with childbearing. Physical exam bears out that a vaginal hysterectomy with anterior colporrhaphy is indicated with possible bilateral salpingectomy, and any other indicated surgery. The risks and complications of the procedure been discussed at length including the risks for bleeding, bleeding requiring transfusion, infection, injury to local structures to specifically include the bowel, bladder, and ureters. She understood all these concerns and has agreed to proceed. MMODL / IJN: [id number] /
[~2023-01-10 08:11] MED LIST: DEXAMETHASONE SOD PHOSPHATE 4 MG/ML 1 ML VIAL IV ONE; HYDROmorphone 0.5 MG/0.5 ML SYRINGE IVP PRN; ONDANSETRON 4 MG/2 ML VIAL IVP ONE
[2023-01-10] MEDS: LACTATED RINGERS 1,000 ML IV SCH ×2 (08:48→11:55)
[2023-01-10] MEDS ORDERED: MIDAZOLAM 2 MG/2 ML VIAL IVP ONE (09:11)
[2023-01-10] MEDS ORDERED: diphenhydrAMINE 50 MG/ML 1 ML VIAL ONE (09:27)
[2023-01-10] MEDS ORDERED: diphenhydrAMINE 50 MG/ML 1 ML VIAL IVP ONE (09:29)
[2023-01-10] MEDS ORDERED: LIDOCAINE 1% INJ 10MG/ML (20 ML MDV) ONE (09:51)
[2023-01-10] MEDS ORDERED: ROCURONIUM 10 MG/ML (5 ML VIAL) IV ONE (09:51)
[2023-01-10] MEDS ORDERED: PROPOFOL 10 MG/ML 20 ML VIAL IV ONE (09:51)
[2023-01-10] MEDS ORDERED: fentaNYL (PF) 50 MCG/ML 2 ML AMP ONE (09:51)
[2023-01-10] MEDS ORDERED: SUCCINYLCHOLINE CHLORIDE 200 MG/10 ML VIAL IV ONE (09:51)
[2023-01-10] MEDS ORDERED: GLYCOPYRROLATE 0.2 MG/ML 2 ML VIAL ONE (09:51)
[2023-01-10] MEDS ORDERED: NEOSTIGMINE 1 MG/ML 10 ML VIAL ONE (09:51)
[2023-01-10] MEDS ORDERED: BACITRACIN ZINC 500 UNIT/GM OINT 28.4 GM TUBE TOPICAL ONE ×2 (10:13→10:45)
[2023-01-10] MEDS ORDERED: VASOPRESSIN 20 UNIT/ML 1 ML VIAL SQ ONE ×3 (10:20→10:45)
[2023-01-10] MEDS ORDERED: METOCLOPRAMIDE 5 MG/ML 2 ML VIAL IVP PRN (11:16)
[2023-01-10] MEDS ORDERED: ONDANSETRON 4 MG/2 ML VIAL IVP PRN (11:16)
[2023-01-10] MEDS ORDERED: SIMETHICONE 80 MG CHEWABLE PO PRN (11:16)
[2023-01-10] MEDS ORDERED: IBUPROFEN 600 MG TAB PO PRN (11:16)
--- NOTE | 2023-01-10 11:29 | P.OP ---
Date of Procedure: 01/10/23 Preoperative Diagnosis: #1. Symptomatic uterine prolapse #2. Symptomatic cystocele Postoperative Diagnosis: Same Procedure(s) Performed: #1. Vaginal hysterectomy with bilateral salpingectomy #2. Anterior colporrhaphy Anesthesia: ESTHER Surgeon: Reese Inman Air Pollution Auditor #1: Ella Loredo Estimated Blood Loss (ml): 50 IV fluids (ml): 700 Urine output (ml): 150 Pathology: other (Uterus and bilateral fallopian tubes) Condition: stable Disposition: PACU Operative Findings: Preoperative pelvic examination demonstrated a grade 3 uterine prolapse as well as grade 3 cystocele. The fallopian tubes were able to be easily removed during the surgery. The bilateral ovaries appeared entirely normal and were left in situ. Clear urine was seen before, during, and after the case Description of Procedure: The patient was prepped and draped in usual fashion after general endotracheal anesthesia was established by the anesthesiologist. A weighted speculum was placed and the cervix grasped with a double-tooth tenaculum. The cervicovaginal mucosa was infused with diluted vasopressin solution circumferentially. It was then opened sharply with a scalpel and reflected distally both sharply and bluntly. The posterior peritoneum was identified and incised sharply with the Irby scissors allowing placement of a 2-0 Vicryl tagged for later use. Curved Joanne Modesto clamps are utilized to clamp the uterosacral ligaments on each side. Each was cut and suture-ligated with a transfixion stitch of 0 Vicryl. Serial bites were taken up the cardinal ligament on each side using curved Anita-Modesto clamps with each pedicle being cut and suture ligated with transfixion stitches of 0 Vicryl. After several bites on either side, the uterus was inverted posteriorly and the anterior peritoneum identified and incised sharply with the Bovie. This isolated the utero-ovarian ligament on each side. The fallopian tubes were occluded the visible and mobile and were brought into the pedicle using a Anita-Modesto clamp across the entire utero-ovarian pedicle with the fallopian tube included. Is carried out on each side. The specimen was then divided from the patient and sent for pathological diagnoses. The utero-ovarian ligaments on each side were suture ligated with a transfixion stitch of 0 Vicryl followed by free tie of 0 Vicryl. Hemostasis appeared to be excellent. The long weighted speculum was replaced the short weighted speculum and the previously placed stitch of 2-0 Vicryl was utilized to close the parietal peritoneum in a pursestring fashion. The uterosacral ligaments were then passed through the contralateral uterosacral ligament and vaginal mucosa on each side in a modified Wilson's culdoplasty. The intervening open vaginal mucosa posteriorly was closed with interrupted [id number] stitches of 0 Vicryl. One small dogear of bleeding at the posterior angle was made hemostatic with the Bovie. Attention was then turned to the anterior vaginal cuff where 2 Allises were placed. The vesicovaginal mucosa was infused with diluted vasopressin solution along the midline, undermined with Metzenbaum scissors and divided to the urethral apex with Allis clamps placed along the margins. The mucosa was dissected sharply and bluntly from the underlying tissues. Once adequate reflection of been carried out, 2-0 [address]DS was utilized to place Zeynep plication stitches starting at the urethral apex to the vaginal apex. The intervening vaginal mucosa that was redundant was then removed sharply with the Metzenbaum scissors and discarded. The mucosal incision was then closed with a running locking stitch of 2-0 Vicryl from urethral apex to the apex of the vagina. A Burger catheter had been placed prior to placing the Zeynep plication stitches and demonstrated clear rosario urine. This continued to be clear after the case. The vagina was then packed with one-inch iodophor gauze covered with bacitracin ointment. Assessment a blood loss for the case was approximately 50 mL. There were no complications. All sponge, instrument, needle counts were correct. The patient tolerated the procedure well and proceeded to the recovery room in stable condition.
[2023-01-10] MEDS: KETOROLAC 15 MG/ML 1 ML VIAL IVP PRN ×3 (11:47→23:56)
[2023-01-10] MEDS ORDERED: HYDROmorphone 0.5 MG/0.5 ML SYRINGE IVP ONE (12:09)
[2023-01-10] MEDS: Acetaminophen-Codeine 300-30mg TAB PO PRN ×2 (14:59→21:20)
[2023-01-10] MEDS: diphenhydrAMINE 50 MG/ML 1 ML VIAL IVP PRN ×2 (15:04→21:21)
[2023-01-10] MEDS: SENNOSIDES-DOCUSATE SODIUM 1 EACH TAB PO SCH (21:19)
[2023-01-11] MEDS: Acetaminophen-Codeine 300-30mg TAB PO PRN ×4 (01:21→19:22)
[2023-01-11] MEDS: LACTATED RINGERS 1,000 ML IV SCH ×4 (05:15→17:20)
[2023-01-11] MEDS: KETOROLAC 15 MG/ML 1 ML VIAL IVP PRN ×3 (05:15→22:50)
[2023-01-11] MEDS: diphenhydrAMINE 50 MG/ML 1 ML VIAL IVP PRN ×2 (05:40→22:49)
--- NOTE | 2023-01-11 07:15 | P.PN ---
Progress Note - Text 01/11/23 633sm 32-year-old female status post vaginal hysterectomy by Dr. Inman. Patient received spinal Duramorph for postop pain control, she was seen and evaluated, he has a VAS of 6 and just received IV Toradol. No complains of nausea vomiting or pruritus
--- NOTE | 2023-01-11 07:38 | P.ANPRN ---
Procedure Note - Anesthesia - Epidural/Spinal Spinal Time Out Performed: Yes Date of Procedure: 01/10/23 Procedure Start Time: :10 Procedure Stop Time: :13 Location of Patient: PreOp Indication: Acute Post-Operative Pain, Requested by Surgeon Sedation Type: Sedate with meaningful contact maintained Preparation: Sterile Prep Position: Sitting Needle Guage: 25 Blood Aspirated: No Pain Paresthesia on Injection Noted: No Events: Uneventful and Well Tolerated (Duramorph 300 mics plus fentanyl 25 mics given intrathecally)
[2023-01-11] MEDS: SENNOSIDES-DOCUSATE SODIUM 1 EACH TAB PO SCH ×2 (08:11→19:22)
--- NOTE | 2023-01-11 08:30 | P.DS ---
Providers Expected date of discharge: 01/11/23 Attending physician: Reese Inman Primary care physician: Adam Zavala - Discharge Diagnosis(es) (1) Cystocele Current Visit: Yes Status: Acute (2) Uterine prolapse Current Visit: Yes Status: Acute Hospital Course: The patient is a 32-year-old 7 para 5025 who has had increasingly symptomatic pelvic organ prolapse over the course of her last 2 pregnancies and has now completed her childbearing. As a result, she is asked for definitive therapy. She was taken the operating room where she underwent vaginal hysterectomy with anterior colporrhaphy and uncomplicated fashion. Her postoperative course has been unremarkable with vital signs remaining stable and her temperature was afebrile throughout. She had her vaginal packing and catheter removed this morning and has yet to urinate but will have a measured void as well as a check for postvoid residual. Pending no problems with normal urinary function, she is stable for discharge on post operative day #1 and was discharged home to follow-up in the office in 2 weeks for recheck in 6 weeks routinely. Discharge instructions included calling for any significantly increased bleeding, fever, pain, urinary complaints, GI complaints, or anything else that concerned her. She is additionally and most important instructed to have nothing in the vagina for at least 6 weeks time to include intercourse and to abstain from any heavy lifting over the same period of time. She was to abstain from driving until off of all pain medications or 2 weeks' time, whichever came first. She understood her instructions and agrees to follow up as noted above. Discharge medications included any normal home medications as well as [id number] analgesic pain medications. She was provided with prescription for Tylenol 3, 1-2 by mouth every 6 hours when necessary pain, #20 dispensed with no refills. Discharge hemoglobin and hematocrit are pending at this time. Procedures: #1. Vaginal hysterectomy with bilateral salpingectomy #2. Anterior colporrhaphy Patient Condition at Discharge: Stable Plan - Discharge Summary Discharge Rx Participant: Yes New Discharge Prescriptions: No Action buPROPion SR [Wellbutrin SR] 150 mg PO DAILY Sertraline [Zoloft] 200 mg PO DAILY Discharge Medication List Sertraline [Zoloft] 200 mg PO DAILY 11/16/21 [History] buPROPion SR [Wellbutrin SR] 150 mg PO DAILY 01/06/23 [History] Follow up Appointment(s)/Referral(s): Reese Inman MD [STAFF PHYSICIAN] - 2 Weeks Discharge Disposition: HOME SELF-CARE
[2023-01-11 08:58] LABS: Basophils % (A) 0 %; Eosinophils # (A) 0.1 k/uL (0-0.7); Eosinophils % (A) 2 %; HCT 40.4 % (34.0-46.0); HGB 13.7 gm/dL (11.4-16.0); Lymphocytes # (A) 2.9 k/uL (1.0-4.8); Lymphocytes % (A) 39 %; MCH 31.3 pg (25.0-35.0); MCHC 33.8 g/dL (31.0-37.0); MCV 92.6 fL (80.0-100.0); Mean Platelet Volume 8.3; Monocytes # (A) 0.4 k/uL (0-1.0); Monocytes % (A) 6 %; Neutrophils # (A) 3.8 k/uL (1.3-7.7); Neutrophils % (A) 51 %; Platelet Count 220 k/uL (150-450); RBC 4.37 m/uL (3.80-5.40); RDW 13.1 % (11.5-15.5); WBC 7.5 k/uL (3.8-10.6)
[2023-01-11] MEDS ORDERED: ACETAMINOPHEN TAB 325 MG TAB PO PRN (11:19)
[2023-01-12] MEDS: Acetaminophen-Codeine 300-30mg TAB PO PRN (01:31)
[2023-01-12 11:02] VITALS: BP 112/64; PULSE 84; RESP 16; TEMP 98
== END 2023-01-12 10:30 | disposition home or self-care (01) ==
LOC: OR 08:11 → EEVIPCON 09:55 → 4FBP 11:05 → OR 01-12 08:32
PROVIDERS: ADMIT Obstetrics & Gynecology; ATTEND Obstetrics & Gynecology
DX: N81.4 Uterovaginal prolapse, unspecified (principal); N72 Inflammatory disease of cervix uteri; N97.1 Female infertility of tubal origin; G89.18 Other acute postprocedural pain; F32.A Depression, unspecified; F41.9 Anxiety disorder, unspecified; Z79.899 Other long term (current) drug therapy
CPT/HCPCS: 96376 ×2; 96361; 96374; 96375; 85025; 88307; 58262; 57283; 57240; G0378; J2250; J0330; J1200 ×2; J1100; J2710; J0690; J2405; J2001; J3010; J1885 ×2; J2704; J1170

== ENCOUNTER → 2023-07-06 | Outpatient (CLI) | payer BC ==
[2023-07-07 03:30] LABS: Basophils # (A) 0.03 X 10*3/uL (0.00-0.10); Basophils % (A) 0.4 %; Eosinophils % (A) 2.8 %; HCT 45.5 % (37.2-46.3); Lymphocytes # (A) 2.49 X 10*3/uL (0.90-5.00); Lymphocytes % (A) 35.1 %; MCH 30.5 pg (27.0-32.0); MCV 92.5 FL (80.0-97.0); Mean Platelet Volume 10.1 FL (9.5-12.2); Monocytes # (A) 0.42 X 10*3/uL (0.20-1.00); Monocytes % (A) 5.9 %; NRBC Per 100 WBC 0 X 10*3/uL (0.00-0.01); Neutrophils # (A) 3.93 X 10*3/uL (1.80-7.70); Neutrophils % (A) 55.5 %; Platelet Count 303 X 10*3/uL (140-440); RBC 4.92 X 10*6/uL (4.10-5.20); RDW 12.5 % (11.5-14.5); WBC 7.09 X 10*3/uL (4.50-10.00)
[2023-07-07 04:38] LABS: Blood Urea Nitrogen 12.3 mg/dL (9.0-27.0); Chloride 102 mmol/L (96-109); Glucose 78 mg/dL (70-110); Potassium 4.1 mmol/L (3.5-5.5); Sodium 140 mmol/L (135-145)
== END | disposition home or self-care (01) ==
LOC: LABPAT 15:57
PROVIDERS: ATTEND Obstetrics & Gynecology
DX: Z01.812 Encounter for preprocedural laboratory examination (principal); N81.6 Rectocele
CPT/HCPCS: 80051; 82565; 82947; 84520; 85025; 86850; 86900; 86901; 87086

== ENCOUNTER 2023-07-13 05:42 | Day surgery (SDC) | payer BC ==
[2023-07-07 15:56] VITALS: BMI 23.3
[2023-07-13] MEDS ORDERED: LIDOCAINE 1% (10MG/ML) FOR IV START INTRADERMA PRN (05:46)
[2023-07-13] MEDS: IV FLUID CONTINUATION 1,000 ML IV ONE (06:43)
[2023-07-13] MEDS: DEXAMETHASONE SOD PHOSPHATE 4 MG/ML 1 ML VIAL IV ONE (06:45)
[2023-07-13] MEDS: LACTATED RINGERS 1,000 ML IV SCH ×2 (06:45→11:25)
[2023-07-13] MEDS: ONDANSETRON 4 MG/2 ML VIAL IVP ONE (06:46)
[2023-07-13] MEDS: MIDAZOLAM 2 MG/2 ML VIAL IVP ONE (06:57)
[2023-07-13] MEDS ORDERED: fentaNYL (PF) 50 MCG/ML 2 ML AMP IV PRN (07:00)
[2023-07-13] MEDS ORDERED: METOCLOPRAMIDE 5 MG/ML 2 ML VIAL IVP PRN (07:00)
[2023-07-13] MEDS ORDERED: MIDAZOLAM 2 MG/2 ML VIAL IM ONE (07:00)
[2023-07-13] MEDS ORDERED: PROPOFOL 10 MG/ML 20 ML VIAL IV ONE (07:33)
[2023-07-13] MEDS ORDERED: MIDAZOLAM 2 MG/2 ML VIAL ONE (07:33)
[2023-07-13] MEDS ORDERED: GLYCOPYRROLATE 0.2 MG/ML 2 ML VIAL ONE (07:33)
[2023-07-13] MEDS ORDERED: ePHEDrine 50 MG/ML 1 ML VIAL ONE (07:33)
[2023-07-13] MEDS ORDERED: LIDOCAINE 1% INJ 10MG/ML (20 ML MDV) ONE (07:33)
[2023-07-13] MEDS ORDERED: fentaNYL (PF) 50 MCG/ML 2 ML AMP ONE (07:33)
[2023-07-13] MEDS ORDERED: KETOROLAC 15 MG/ML 1 ML VIAL ONE (07:33)
[2023-07-13] MEDS: VASOPRESSIN 20 UNIT in SODIUM CHLORIDE 0.9% 50 ML IV ONE (07:52)
[2023-07-13] MEDS: BACITRACIN ZINC 500 UNIT/GM OINT 28.4 GM TUBE TOPICAL ONE (07:53)
[2023-07-13] MEDS: VASOPRESSIN 20 UNIT/ML 1 ML VIAL SQ ONE (07:54)
[2023-07-13] MEDS: LACTATED RINGERS 1,000 ML IV ONE ×3 (08:25→23:51)
[2023-07-13] MEDS ORDERED: SIMETHICONE 80 MG CHEWABLE PO PRN (08:33)
[2023-07-13] MEDS ORDERED: KETOROLAC 15 MG/ML 1 ML VIAL IVP PRN (08:33)
[2023-07-13] MEDS ORDERED: ONDANSETRON 4 MG/2 ML VIAL IVP PRN (08:33)
--- NOTE | 2023-07-13 08:42 | P.OP ---
Date of Procedure: 07/13/23 Preoperative Diagnosis: #1. Symptomatic rectocele Postoperative Diagnosis: Same Procedure(s) Performed: #1. Posterior colporrhaphy Anesthesia: other (General by LMA) Surgeon: Reese Inman Lab Technologist #1: Marsha Ugarte Estimated Blood Loss (ml): 75 IV fluids (ml): 500 Urine output (ml): 50 Pathology: none sent Condition: stable Disposition: PACU Operative Findings: Preoperative pelvic examination demonstrated an absent uterus and cervix from previous vaginal hysterectomy with anterior repair. Those repairs remain intact and are well supported and healed. There is a grade 3 rectocele present which, during dissection was noted to have a superior enterocele present as well. The repair appeared excellent following closure. Description of Procedure: The patient was prepped and draped in usual fashion after general anesthesia was administered by the anesthesiologist. The bladder was drained of approximately 50 cc of clear rosario urine. 2 Allis clamps were placed at the margin of the hymeneal ring externally and a triangular shaped wedge of tissue was removed over the perineal body in standard fashion which was discarded. The Allis clamps were removed to the midline and the rectovaginal mucosa was infused with diluted vasopressin solution to the apex of the intended repair. The rectovaginal mucosa was then undermined in the midline with the Metzenbaum scis sors and divided to the apex of the intended repair with Allises placed along the margins of the dissection. The overlying mucosa was then dissected sharply and bluntly from the underlying tissues. After adequate reflection had been carried out and after identifying the superior enterocele, serial Zeynep plication stitches were placed beginning at the apex of the dissection with 2-0 PDS. These were carried to the opening of the perineum. After all of the plication stitches have been placed, the intervening redundant vaginal mucosa was trimmed and the vaginal mucosa closed from the apex to the opening of the vagina with closure of the perineorrhaphy in standard fashion similar to a episiotomy repair. The repair appeared to be excellent following closure. The vagina was then packed with 1 inch iodophor gauze covered with bacitracin ointment. Estimated blood loss for the case was approximately 75 mL. There were no complications. All sponge, instrument, and needle counts were correct. The patient tolerated the procedure well and proceeded to the recovery room in stable condition. A Burger catheter was not placed as the intention is to send the patient home this afternoon after she is able to tolerate a regular diet and able to void.
[2023-07-13] MEDS: HYDROmorphone 0.5 MG/0.5 ML SYRINGE IVP PRN (08:46)
[2023-07-13] MEDS: HYDROcodone/APAP 5-325MG 1 EACH TAB PO PRN ×2 (09:50→22:18)
[2023-07-13] MEDS: IBUPROFEN 600 MG TAB PO PRN (13:10)
[2023-07-13] MEDS: SENNOSIDES-DOCUSATE SODIUM 1 EACH TAB PO SCH (20:33)
[2023-07-13 23:50] LABS: Basophils % (A) 0 %; Eosinophils # (A) 0.1 k/uL (0-0.7); Eosinophils % (A) 1 %; HCT 35.5 % (34.0-46.0); HGB 11.5 gm/dL (11.4-16.0); Lymphocytes # (A) 2.3 k/uL (1.0-4.8); Lymphocytes % (A) 28 %; MCHC 32.4 g/dL (31.0-37.0); MCV 92.6 fL (80.0-100.0); Mean Platelet Volume 7.6; Monocytes # (A) 0.4 k/uL (0-1.0); Monocytes % (A) 5 %; Neutrophils # (A) 5.3 k/uL (1.3-7.7); Neutrophils % (A) 65 %; Platelet Count 238 k/uL (150-450); RBC 3.84 m/uL (3.80-5.40); RDW 12.4 % (11.5-15.5); WBC 8.3 k/uL (3.8-10.6)
[2023-07-14 00:07] LABS: Prothrombin Time 10.7 sec (10.0-12.5)
[2023-07-14] MEDS: BACITRACIN ZINC 500 UNIT/GM OINT 28.4 GM TUBE TOPICAL ONE (00:39)
--- NOTE | 2023-07-14 01:12 | P.OP ---
Date of Procedure: 07/14/23 Preoperative Diagnosis: 1. S/P recotcele repair 2.vaginal bleeding Postoperative Diagnosis: 1. bleeding rectocele repair Procedure(s) Performed: exam under anesthesia with repair of bleeding rectocele Anesthesia: spinal Surgeon: Marsha Ugarte Estimated Blood Loss (ml): 50 IV fluids (ml): 500 Urine output (ml): 60 Pathology: none sent Condition: stable Disposition: PACU Indications for Procedure: Called to see the patient status post rectocele repair postop day 0. The time was about 10 PM. The patient was standing at bedside and dripping blood from the packing left after surgery. Removed that packing and found a few blood clots and packing was soaked through. I replaced the packing but the patient bled through that packing within half an hour. I consented the patient to the back to the operating room to find the vaginal bleeding and Pitocin stitches where the bleeding was occurring. Operative Findings: There was some oozing all along the suture line. The apex was actively bleeding and an area just about an inch in was also bleeding. When the packing was removed and the operating room there was a tennis ball size clot that came out with that. Description of Procedure: Patient is taken the operating room where spinal anesthetic was obtained without difficulty. She was prepped and draped in normal sterile fashion in dorsal lithotomy position, legs placed in the Wolf stirrups. The Burger catheter was removed and an anterior retractor was placed dissected get good visualization. There was oozing along the entire suture line and bleeding from the apex. I started at the apex with an 0 Vicryl. The suture was run in a locked fashion to obtain hemostasis. A few more stitches had to be placed near the apex and about an inch and from the introitus where there was some active bleeding. When the stitches were all placed the patient had no active bleeding minimal oozing from one spot.Burger catheter was replaced and iodoform gauze packing was placed. Patient Tolerated the procedure well. Sponge and instrument counts correct 2. She was taken to recovery in stable condition.
[2023-07-14] MEDS: diphenhydrAMINE 50 MG/ML 1 ML VIAL IVP PRN (01:39)
[2023-07-14 02:25] VITALS: TEMP 98.1
[2023-07-14 08:33] VITALS: BP 105/69; PULSE 106; RESP 16
--- NOTE | 2023-07-14 09:14 | P.DS ---
Providers Expected date of discharge: 07/14/23 Attending physician: Reese Inman Primary care physician: Adam [facility] Course: The patient is a 33-year-old 7 para 5-0-2-5 who presented to the office with complaints of increasing pelvic pressure. She underwent last year a vaginal hysterectomy with anterior colporrhaphy at which time there was no significant rectocele present. Examination at the time of presentation this year demonstrates a grade 2-3 rectocele present which is symptomatic for the patient and for which she is requesting repair. She was taken to the operating room where she underwent a rectocele repair/posterior colporrhaphy in an uncomplicated fashion. She was to be discharged home later in the morning assuming she was able to adequately void. She was unable to urinate on her own over the course of the late morning and early afternoon and was therefore admitted to the hospital. She denied, late last evening, had significantly increasing vaginal bleeding forcing her return to the operating room at which time there was apparently some bleeding noted at the apex of the repair which was simply reclosed and oversewn and led to excellent hemostasis. Packing was replaced. The packing and Burger catheter remained in place overnight. They have been removed this morning and there is no significant ongoing bleeding. We now await the patient's ability to void to discharge her home. She will be discharged home to follow-up in the office in 2 weeks for recheck in 6 weeks routinely. Discharge instructions included calling for any significantly increased bleeding, fever, pain, urinary or bowel complaints. She was specifically instructed to do no heavy lifting over the next 6 weeks of anything heavier than a gallon of milk. And she was lastly instructed to have nothing in the vagina to include intercourse over the same period of 6 weeks. She understood all of her instructions and agrees to follow-up as noted above. Discharge medications included umqr-zal-jnkrkee analgesic pain medications as well as a prescription for Guthrie 5/375 mg, 1-2 p.o. every 6 hours as needed pain, #20 dispensed with no refills. Procedures: #1. Posterior colporrhaphy #2. Return to operating room for reclosure of vaginal mucosa secondary to bleeding Patient Condition at Discharge: Stable Plan - Discharge Summary Discharge Rx Participant: Yes New Discharge Prescriptions: No Action buPROPion SR [Wellbutrin SR] 150 mg PO DAILY Sertraline [Zoloft] 200 mg PO DAILY Discharge Medication List Sertraline [Zoloft] 200 mg PO DAILY 11/16/21 [History] buPROPion SR [Wellbutrin SR] 150 mg PO DAILY 01/06/23 [History] Follow up Appointment(s)/Referral(s): Reese Inman MD [STAFF PHYSICIAN] - 2 Weeks (IF YOU DO NOT ALREADY HAVE A FOLLOW UP APPOINTMENT YOU WILL NEED TO CALL TO SCHEDULE ONE) Patient Instructions/Handouts: *Surgery [facility] - (Anesthesia) Discharge Instructions Outpatient Surgery, Enterocele Repair (DC) Discharge Disposition: HOME SELF-CARE Care Plan Goals (MU): Sofia last taken at 0948.
[2023-07-14] MEDS: ACETAMINOPHEN TAB 325 MG TAB PO PRN (09:29)
== END 2023-07-14 11:45 | disposition home or self-care (01) ==
LOC: OR 05:42 → 4FBP 08:26 → OR 07-14 11:45
PROVIDERS: ATTEND Obstetrics & Gynecology
DX: N81.6 Rectocele (principal); Z79.899 Other long term (current) drug therapy
CPT/HCPCS: 85025; 85610; 57250; J2250; J1200; J1100; J0690; J2405; J1170

== ENCOUNTER → 2024-06-24 | Outpatient (CLI) | payer BC ==
--- NOTE | 2024-06-24 16:46 | XR ---
EXAMINATION TYPE: XR shoulder complete RT DATE OF EXAM: 06/24/2024 CLINICAL INDICATION: Female, 34 years old with history of M25.511 M54.10, pain TECHNIQUE: Three views of the right shoulder are obtained. COMPARISON: None. FINDINGS: There is no acute fracture/dislocation evident in the right shoulder. The acromioclavicul ar and glenohumeral joint spaces appear within normal limits. The visualized ribs are intact and unr emarkable. IMPRESSION: Unremarkable study. [facility], , 06/24/2024 4:44 PM
--- NOTE | 2024-06-24 16:48 | XR ---
EXAMINATION TYPE: XR thoracic spine 2V DATE OF EXAM: 06/24/2024 CLINICAL INDICATION: Female, 34 years old with history of M25.511 M54.10, pain TECHNIQUE: Frontal and lateral images of thoracic spine are obtained. COMPARISON: None. FINDINGS: Thoracic spine show satisfactory alignment without evidence of acute fracture or dislocatio n. Vertebral body heights and disc space heights are preserved. Visualized ribs are intact bilateral ly. Cholecystectomy clips are present. IMPRESSION: As above. [facility], , 06/24/2024 4:45 PM
--- NOTE | 2024-06-24 16:49 | XR ---
EXAMINATION TYPE: XR cervical spine comp DATE OF EXAM: 06/24/2024 TECHNIQUE: Frontal, lateral, oblique, and open mouth view of the cervical spine are obtained. CLINICAL INDICATION: Female, 34 years old with history of M25.511 M54.10, pain COMPARISON: None FINDINGS: The cervical spine is visualized in its entirety from C1 thru the top of T1 level, it is s traightened in alignment. The pre-vertebral soft tissue appears within normal limits. The C1-C2 art iculation is within normal limits on the open mouth view. Vertebral body and disc space heights are w ithin normal limits. The oblique images are within normal limits. Overlying soft tissue is unremarkab le. IMPRESSION: As above. [facility], , 06/24/2024 4:47 PM
== END | disposition home or self-care (01) ==
LOC: RADXRMAIN 16:13
PROVIDERS: ATTEND Pediatrics
DX: M54.10 Radiculopathy, site unspecified (principal); M25.511 Pain in right shoulder
CPT/HCPCS: 72050; 72070